=== PATIENT | female | born 2000 | race Hispanic/Latino ===

== ENCOUNTER 2023-11-04 11:31 | Outpatient (CLI) | payer OTHER | END 2023-11-04 11:32 | disposition home or self-care (01) | LOC: DTY/OP 11:31 | PROVIDERS: ATTEND Student in an Organized Health Care Education/Training Program | DX: E66.9 Obesity, unspecified (principal) | CPT/HCPCS: 97802 ==

== ENCOUNTER 2024-01-02 09:40 | Day surgery (SDC) | payer OTHER ==
[2024-01-02] MEDS ORDERED: Acetaminophen 500 MG TAB ONE (10:02)
[2024-01-02] MEDS: Acetaminophen 500 MG TAB PO SCH (10:03)
[2024-01-02] MEDS: Ferumoxytol (NON ERSD) 510 MG in 0.9 % Sodium Chloride 150 ML IVPB SCH (10:30)
[2024-01-02 15:27] VITALS: BP 116/62; TEMP 98
== END 2024-01-02 15:10 | disposition home or self-care (01) ==
LOC: ONC/OP 09:40
PROVIDERS: ATTEND Family Medicine
DX: D64.9 Anemia, unspecified (principal)
CPT/HCPCS: 96365; 96366; Q0138